=== PATIENT | female | born 1970 | race Caucasian/White ===

== ENCOUNTER 2020-04-10 00:46 | Outpatient (CLI) | payer OTHER, SELFPAY ==
[2020-04-10 17:08] LABS: SARS-CoV-2 RNA PCR Negative
== END 2020-04-10 00:47 | disposition home or self-care (01) ==
LOC: ANHCOVIDDT 00:46
PROVIDERS: Visit Provider Internal Medicine Gastroenterology
DX: Z01.812 Encounter for preprocedural laboratory examination (principal); Z11.59 Encounter for screening for other viral diseases
CPT/HCPCS: 87635; C9803; U0003

== ENCOUNTER 2020-04-13 00:42 | Day surgery (SDC) | payer OTHER, SELFPAY ==
[2020-04-02 15:06] VITALS: BMI 23.8
[2020-04-13 11:21] VITALS: BP 144/83; PULSE 72; RESP 16; TEMP 36.8; O2SAT 100; BMI 25.3
[2020-04-13] MEDS: LACTATED RINGERS 1,000 ML 150 ML IV CONT (11:33)
--- NOTE | 2020-04-13 11:38 | P.PNAN_ITS ---
Anes - Initial Pre Proc Eval Procedure: Operation Date: 04/13/20 12:30 Proposed Procedures p Screening Colonoscopy - Triston Echeverria DO Date/Time: 04/13/20 11:38 Surgeon: Triston Echeverria DO Pre Op Diagnosis: neoplasm screening Patient Data Age: 49 Gender: F Height: 5 ft 5 in Weight: 69 kg Last Vital Signs Temp 98.3 F 04/13/20 11:21 Pulse 72 04/13/20 11:21 Resp 16 04/13/20 11:21 BP 144/83 H 04/13/20 11:21 Pulse Ox 100 04/13/20 11:21 Allergies Allergy/AdvReac Type Severity Reaction Status Date / Time cephalexin Allergy Unknown Other Verified 04/13/20 11:20 Home Medications Medication Instructions Recorded Confirmed Type aspirin 81 mg PO DAILY 04/02/20 04/02/20 History levothyroxine 112 mcg PO DAILY 04/02/20 04/02/20 History Patient hx anesthesia problems: none Family hx anesthesia problems: none [facility] Past Medical History Medical History (Updated 04/13/20 @ 11:38 by Gio Huber MD) CAD (coronary artery disease) had an ablation for WPW H/O renal cell cancer 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; 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 since then Social History Social History Smoking packs per day: 0.5 Smoking cigarettes per day: 10.0 Living arrangements: with family Anes - Eval Final PreProcedure Day of Procedure 04/13/20 11:38 Patient weight: normal Heart: regular rate and rhythm Lungs: clear to auscultation Airway: Mallampati scale class II Neurological: alert and oriented Last oral intake: >/= 8 hours ASA classification: III Emergent: no Anesthetic plan: proceed Anesthesia type and monitoring: general GIVS and standard monitoring Informed Consent: The patient's anesthetic plan and its attendant risks and benefits were discussed with the patient/family/POA. Questions were solicited and answers provided to the satisfaction of the patient/family/POA.
--- NOTE | 2020-04-13 12:10 | PM.IMHP ---
H&P: HPI History of Present Illness Date/Time: 04/13/20 12:10 Chief complaint: neoplasm screening Narrative: reason for visit colonoscopy. This very pleasant lady's being evaluated at the request of the primary physician. Patient was examined. Impression: Screening colonoscopy. History of renal cell carcinoma status post nephrectomy. History of Djilz-Lxkvrgpij-Zmsme syndrome status post ablation. History of thyroid nodule status post thyroidectomy. This was for benign disease. Recommendation: Colonoscopy. History: This very pleasant lady has negative GI review systems. She is here for screening colonoscopy. Physical examination: General: very pleasant patient in no acute distress. HEENT: Head was normocephalic sclerae is clear mouth without masses neck was supple. Heart: Rate rhythm regular without S3 or S4. Lungs: CTA. Abdomen: Soft with no guarding or rigidity. Bowel sounds were active. Neurologic: Cranial nerves 2 through 12 intact. No focal defects. No clonus. Musculoskeletal system: Revealed no joint tenderness or swelling no muscle atrophy. Extremities: Reveal no significant edema. Skin: Warm and dry with normal turgor. Mental status: intact. Patient is alert and oriented. 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; no problems since then Social History Social History Smoking packs per day: 0.5 Smoking cigarettes per day: 10.0 Living arrangements: with family Meds Home Medications and Allergies Home Medications Medication Instructions Recorded Confirmed Type aspirin 81 mg PO DAILY 04/02/20 04/02/20 History levothyroxine 112 mcg PO DAILY 04/02/20 04/02/20 History Allergies Allergy/AdvReac Type Severity Reaction Status Date / Time cephalexin Allergy Unknown Other Verified 04/13/20 11:20 Vital Signs Vital Signs - 24 hr 04/13/20 11:21 Temperature 36.8 C Pulse Rate 72 Respiratory Rate 16 Blood Pressure 144/83 H Pulse Oximetry 100
[2020-04-13 12:57] VITALS: BP 112/76; PULSE 64; RESP 21; O2SAT 100
[2020-04-13 13:07] VITALS: BP 117/76; PULSE 67; RESP 16; O2SAT 99
[2020-04-13 13:17] VITALS: BP 135/80; PULSE 65; RESP 18; O2SAT 100
[2020-04-13 13:27] VITALS: BP 141/90; PULSE 62; RESP 18; O2SAT 100
== END 2020-04-13 13:32 | disposition home or self-care (01) ==
PROVIDERS: PCP Family Medicine; Visit Provider Internal Medicine Gastroenterology
PROC: 0DJD8ZZ Inspection of Lower Intestinal Tract, Via Natural or Artificial Opening Endoscopic (ICD-10-PCS; CPT 45378; principal; 2020-04-13 12:30)
DX: Z12.11 Encounter for screening for malignant neoplasm of colon (principal); D12.2 Benign neoplasm of ascending colon; D12.5 Benign neoplasm of sigmoid colon; K63.5 Polyp of colon; K62.1 Rectal polyp; K64.8 Other hemorrhoids; I25.10 Atherosclerotic heart disease of native coronary artery without angina pectoris; E89.0 Postprocedural hypothyroidism; Z85.528 Personal history of other malignant neoplasm of kidney; Z90.5 Acquired absence of kidney
CPT/HCPCS: 45385; 45380; 88305; J2704; J7120

== ENCOUNTER 2021-10-15 00:28 | Day surgery (SDC) | payer OTHER, SELFPAY ==
[2021-10-06 09:03] VITALS: BMI 24.9
[2021-10-15 09:24] VITALS: BP 126/78; PULSE 74; RESP 20; TEMP 36.3; O2SAT 99; BMI 24.5
[2021-10-15] MEDS: LACTATED RINGERS 1,000 ML 150 ML IV CONT (09:34)
--- NOTE | 2021-10-15 09:45 | WPDGICN ---
Assessment and Plan Assessment and plan (1) History of colon polyps: Code(s): Z86.010 - Personal history of colonic polyps Status: Acute Assessment and Plan: Patient has a history of multiple colon polyps removed from the colon a year and half ago. She returns today for follow-up exam because of the number of colon polyps on previous exam. Further recommendations will be given after follow-up colonoscopy. (2) Family history of colonic polyps: Code(s): Z83.71 - Family history of colonic polyps Status: Acute Assessment and Plan: Patient's sister has also had colon polyps. For this reason continued close surveillance of this patient is advised. GI Consult Note Consult date/time: 10/15/21 09:45 HPI: Lizzie Bowden is a 51 year old female Presents for screening colonoscopy. Patient's current weight appetite and bowel movements are normal. She denies abdominal pain. She has had no bleeding. Patient reports having a colonoscopy a year and half ago with multiple colon polyps removed. She presents today for follow-up examination. Family history is significant that her sister has also had colon polyps. Patient's past medical history is significant that she has a prior history of thyroid, breast and renal cell carcinoma. Currently felt to be free of disease. 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; no problems since then Social History Social History Smoking packs per day: 0.5 Smoking cigarettes per day: 10.0 Smoking status: Current every day smoker Tobacco type: cigarettes Alcohol intake: current Drinks per week: 28 Living arrangements: with family Spiritual care concerns: No Meds Home Medications and Allergies Home Medications Medication Instructions Recorded Confirmed Type aspirin 81 mg PO DAILY 04/02/20 10/06/21 History levothyroxine 112 mcg PO DAILY 04/02/20 10/06/21 History calcium carbonate-vitamin D3 1 tablet PO DAILY 10/06/21 10/06/21 History [Calcium 600 + D(3)] cholecalciferol (vitamin D3) 25 mcg PO DAILY 10/06/21 10/06/21 History [Vitamin D3] mecobalamin (vitamin B12) 1,000 mcg PO DAILY 10/06/21 10/06/21 History zinc 50 mg PO DAILY 10/06/21 10/06/21 History Allergies Allergy/AdvReac Type Severity Reaction Status Date / Time cephalexin Allergy Unknown Other Verified 10/06/21 09:02 Vital Signs Vital Signs - 24 hr 10/15/21 09:24 Temperature 97.4 F L Pulse Rate 74 Respiratory Rate 20 Blood Pressure 126/78 Pulse Oximetry 99 Exam Narrative: Physical exam reveals patient to be alert. Vital signs stable. HEENT exam is unremarkable. Patient is anicteric. Lungs are clear to auscultation and percussion. Heart is without murmur or extra sounds. Abdominal exam bowel sounds are present soft nontender with no organomegaly. Digital external rectal exam is normal.
--- NOTE | 2021-10-15 09:48 | WPDANESEPPF ---
Anes - Initial Pre Proc Eval Procedure: Operation Date: 10/15/21 10:00 Proposed Procedures p Screening Colonoscopy - Triston Bear MD Date/Time: 10/15/21 09:48 Surgeon: Triston Bear MD Pre Op Diagnosis: neoplasm screening Patient Data Age: 51 Gender: F Height: 1.65 m Weight: 67 kg Last Vital Signs Temp 36.3 C L 10/15/21 09:24 Pulse 74 10/15/21 09:24 Resp 20 10/15/21 09:24 BP 126/78 10/15/21 09:24 Pulse Ox 99 10/15/21 09:24 Allergies Allergy/AdvReac Type Severity Reaction Status Date / Time cephalexin Allergy Unknown Other Verified 10/06/21 09:02 Home Medications Medication Instructions Recorded Confirmed Type aspirin 81 mg PO DAILY 04/02/20 10/06/21 History levothyroxine 112 mcg PO DAILY 04/02/20 10/06/21 History calcium carbonate-vitamin D3 1 tablet PO DAILY 10/06/21 10/06/21 History [Calcium 600 + D(3)] cholecalciferol (vitamin D3) 25 mcg PO DAILY 10/06/21 10/06/21 History [Vitamin D3] mecobalamin (vitamin B12) 1,000 mcg PO DAILY 10/06/21 10/06/21 History zinc 50 mg PO DAILY 10/06/21 10/06/21 History Patient hx anesthesia problems: none Family hx anesthesia problems: none Results Review: All pre-operative results and documents have been reviewed as part of the pre-operative evaluation. 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; no problems since then Social History Social History Smoking packs per day: 0.5 Smoking cigarettes per day: 10.0 Smoking status: Current every day smoker Tobacco type: cigarettes Alcohol intake: current Drinks per week: 28 Living arrangements: with family Spiritual care concerns: No Anes - Eval Final PreProcedure Day of Procedure 10/15/21 09:49 Patient weight: normal Heart: regular rate and rhythm Lungs: clear to auscultation and normal air movement Airway: Mallampati scale class II Neurological: alert and oriented Last oral intake: >/= 8 hours ASA classification: III Emergent: no Anesthetic plan: proceed Anesthesia type and monitoring: general GIVS and standard monitoring Results Review: All pre-operative results and documents have been reviewed as part of the pre-operative evaluation. Informed Consent: The patient's anesthetic plan and its attendant risks and benefits were discussed with the patient/family/POA. Questions were solicited and answers provided to the satisfaction of the patient/family/POA.
[2021-10-15 10:34] VITALS: BP 103/57; PULSE 83; RESP 20; O2SAT 98
[2021-10-15 10:44] VITALS: BP 107/76; PULSE 80; RESP 18; O2SAT 100
[2021-10-15 10:54] VITALS: BP 116/81; PULSE 61; RESP 14; O2SAT 99
== END 2021-10-15 11:00 | disposition home or self-care (01) ==
PROVIDERS: PCP Internal Medicine; Visit Provider Internal Medicine Gastroenterology
PROC: 0DJD8ZZ Inspection of Lower Intestinal Tract, Via Natural or Artificial Opening Endoscopic (ICD-10-PCS; CPT 45378; principal; 2021-10-15 10:00)
DX: Z12.11 Encounter for screening for malignant neoplasm of colon (principal); K63.5 Polyp of colon; K64.8 Other hemorrhoids; E03.9 Hypothyroidism, unspecified; Z86.73 Personal history of transient ischemic attack (TIA), and cerebral infarction without residual deficits; Z85.3 Personal history of malignant neoplasm of breast; Z85.850 Personal history of malignant neoplasm of thyroid; Z85.528 Personal history of other malignant neoplasm of kidney; F17.210 Nicotine dependence, cigarettes, uncomplicated; Z79.82 Long term (current) use of aspirin
CPT/HCPCS: 45385; 88305; J2704; J7120